=== PATIENT | female | born 1990 | race Caucasian/White ===

== ENCOUNTER → 2017-12-15 15:17 | Outpatient (CLI) | payer OTHER, MEDICAID, SELFPAY ==
[2017-12-15 17:23] LABS: Hematocrit 30.2 % (36-46); Hemoglobin 10.8 g/dL (12.0-16.0)
[2017-12-15 17:59] LABS: GTT (PREG) 1 Hour PP 50gm Dose 137 mg/dL (76-139)
== END ==
PROVIDERS: Family Provider Physician Assistant Medical; PCP Physician Assistant Medical; Visit Provider Specialist
DX: Z34.82 Encounter for supervision of other normal pregnancy, second trimester (principal)
CPT/HCPCS: 82950; 85014; 85018

== ENCOUNTER 2017-12-16 07:27 | Observation (INO) | payer OTHER, MEDICAID, SELFPAY ==
[2017-12-16 08:37] LABS: Bacteria Urine None Seen
[2017-12-16 08:39] LABS: Appearance Urine UA SL CLOUDY; Bilirubin Urine UA NEGATIVE (NEGATIVE); Color Urine UA YELLOW; Glucose Urine UA NEGATIVE (Normal); Ketones Urine UA NEGATIVE (NEGATIVE); Leukocyte Esterase Urine UA TRACE (NEGATIVE); Nitrite Urine UA Negative (Negative); Occult Blood Urine UA 3+ (Negative); Protein Urine UA NEGATIVE (Negative); Urobilinogen Urine UA 0.2 E.U./dL (0.2); pH Urine UA 6.5 (4.5-8.0)
[2017-12-16 08:45] LABS: RBC Urine 30-100/HPF (0-5/HPF); Squamous Epithelial Cell Urine 10-30 /HPF; WBC Urine 1-5/HPF (0-5/HPF)
[2017-12-16 08:46] LABS: Culture Indicated Urine Cult Not Indicated
--- NOTE | 2017-12-16 09:52 | PM.OBTRLD ---
Visit Information Visit Information Date of evaluation: 12/16/17 Primary OB Provider: Adelaide Esquivel Reason for Evaluation: Yes other Comments/Additional reasons for admission: Low back and pelvic pain REPLACED BY [facility] Medical History Anxiety (Chronic ~2005) Depression (Chronic ~2005) Gallstones (Chronic) History of frequent headaches (Chronic) Human papillomavirus (Chronic ~2008) Migraines (Chronic ~2004) Shoulder pain (Chronic ~2007) Chickenpox (Resolved ~1993) Review of Systems Review of Systems Patient comes in with 24 hr of complaints of low back and pelvic pain. No bleeding. No leakage of fluid. No change in vaginal discharge. Good movement. Some increased frequency of urination and some burning with urination. Exam Narrative Exam Narrative: Patient does have some mild right CVA tenderness. She does not have uterine tenderness. Cervix is long and closed. However the presenting part is low. Objective Labs Labs: Laboratory Results - last 24 hr 12/16/17 08:00 Urine Color Yellow Urine Appearance Sl cloudy Urine pH 6.5 Ur Specific [place] 1.020 Urine Protein Negative Urine Glucose (UA) Negative Urine Ketones Negative Urine Occult Blood 3+ H Urine Nitrate Negative Urine Bilirubin Negative Urine Urobilinogen 0.2 Ur Leukocyte Esterase Trace H Urine RBC 30-100/hpf H Urine WBC 1-5/hpf Ur Squamous Epith Cells 10-30 /hpf H Urine Bacteria None seen Ur Culture Indicated? Cult not indicated Micro UA Comment Not Reportable Evaluation Evaluation Baseline heart rate: 150 Variability: Moderate (11-25) monitor accelerations: Present monitor decelerations: Absent Contraction Frequency (minutes): 0 Cervical dilation (cm): 0 Cervical effacement (%): 0 station: -1 Laboratory results: Laboratory Tests 12/16/17 08:00 Urine Color Yellow Urine Appearance Sl cloudy Urine pH 6.5 Ur Specific [place] 1.020 Urine Protein Negative Urine Glucose (UA) Negative Urine Ketones Negative Urine Occult Blood 3+ H Urine Nitrate Negative Urine Bilirubin Negative Urine Urobilinogen 0.2 Ur Leukocyte Esterase Trace H Urine RBC 30-100/hpf H Urine WBC 1-5/hpf Ur Squamous Epith Cells 10-30 /hpf H Urine Bacteria None seen Ur Culture Indicated? Cult not indicated Micro UA Comment Not Reportable Diagnosis, Plan/Disposition Final Diagnosis (1) UTI (urinary tract infection): Current Visit: No Status: Acute Plan/Disposition Plan: The patient will be started on antibiotics. She has to push fluid. If she develops a fever she is to return for admission for IV antibiotics. OB Disposition: home
== END 2017-12-16 09:37 | disposition home or self-care (01) ==
PROVIDERS: Specialist; Family Provider Physician Assistant Medical; PCP Physician Assistant Medical
DX: O26.893 Other specified pregnancy related conditions, third trimester (principal); Z3A.28 28 weeks gestation of pregnancy; N39.0 Urinary tract infection, site not specified
CPT/HCPCS: 59025; 59050; 81001; G0378; G0379

== ENCOUNTER → 2018-02-15 17:10 | Outpatient (CLI) | payer OTHER, MEDICAID, SELFPAY ==
[2018-02-16 12:26] LABS: Strep Grp B PCR NEG for Grp B Strep
== END ==
PROVIDERS: Family Provider Physician Assistant Medical; PCP Physician Assistant Medical; Visit Provider Specialist
DX: Z3A.37 37 weeks gestation of pregnancy (principal)
CPT/HCPCS: 87653

== ENCOUNTER 2018-02-26 02:17 | Inpatient (IN) | payer OTHER, MEDICAID, SELFPAY ==
[2018-02-26 03:16] LABS: Add Manual Diff / Slide Review NO; Basophils Percent Auto 0.5 % (0-2); Eosinophils Percent Auto 0.6 % (2-4); Lymphocytes Percent Auto 23.2 % (25-40); Mean Corpuscular HGB Conc 34.2 % (30-36); Mean Corpuscular Hemoglobin 32.2 PG (26-34); Mean Corpuscular Volume 94.3 fL (80-100); Monocytes Percent Auto 4.7 % (3-14); Neutrophils Absolute Auto 7100 /uL (3000-5900); Platelet Count 268 X10^3/uL (150-400); Red Blood Cell Count 3.71 X10^6/uL (4.0-5.2); Red Cell Distribution Width 15.2 % (11.6-14.8)
[2018-02-26] MEDS: LACTATED RINGERS 1,000 ML 100 ML IV (03:30)
--- NOTE | 2018-02-26 03:47 | P.HPOB_ITS ---
OB HPI Date/Time Date of admission: 02/26/18 Date Patient Seen: 02/26/18 Time Patient Seen: 03:44 History of Present Condition Chief complaint: observation : 2 Para: 1 Estimated Date of Delivery: 03/05/18 Estimated Gestational Age (weeks): 39 Narrative: Luiza Scott is a 28 year old female who arrived on Labor and delivery in active labor. History of Present care: good care Dating criteria: LMP confirmed by 1st trimester US Ultrasounds: normal mid trimester US Obstetrical complications: none Medical complications: none Preadmission Labs Blood type: A (+) positive -: Antibody screen: negative, GBS status: negative, HBsAG: negative, HIV: negative, HSV 2: negative and RPR/VDLR: negative -: Chlamydia screen: not detected and Gonorrhea screen: not detected -: Rubella: immune and Varicella: immune HCAB: negative PAP: Normal Quad screen: Normal 1 hr GTT: 137 Prior (ies) History: 07/06/2014 39 weeks vaginal delivery 6 lb 14 oz female Evaluation Evaluation Baseline heart rate: 120 Variability: Moderate (11-25) monitor accelerations: Present monitor decelerations: Absent Contraction Frequency (minutes): 3 Uterine Contraction Intensity: Moderate Category of Tracing: I Cervical dilation (cm): 5 Cervical effacement (%): 80 station: -2 Laboratory results: Laboratory Tests 02/26/18 03:00 WBC 10.0 RBC 3.71 L Hgb 12.0 Hct 35.0 L MCV 94.3 MCH 32.2 MCHC 34.2 RDW 15.2 H Plt Count 268 Neut % (Auto) 71.0 Lymph % (Auto) 23.2 L [place] % (Auto) 4.7 Eos % (Auto) 0.6 L Baso % (Auto) 0.5 Neut # (Auto) 7100 H [facility] Medical History Anxiety (Chronic ~2005) Depression (Chronic ~2005) Gallstones (Chronic) History of frequent headaches (Chronic) Human papillomavirus (Chronic ~2008) Migraines (Chronic ~2004) Shoulder pain (Chronic ~2007) Chickenpox (Resolved ~1993) Meds Home Medications Medication Instructions Recorded Confirmed Type ondansetron [Zofran ODT] 4 mg SUBLINGUAL Q6HP PRN #20 odt 07/11/17 Rx omeprazole 20 mg tablet,delayed 40 mg PO DAILY PRN #60 tab 01/19/18 Rx release fbrqgbozws-yhouzzllaxkhj-yjynmyxw 1 - 2 tab PO Q4HP PRN #30 tab 02/15/18 Rx 50 mg-325 mg-40 mg tablet zolpidem 5 mg tablet 5 mg PO BEDTIME PRN #10 tab 02/15/18 Rx Allergies Allergy/AdvReac Type Severity Reaction Status Date / Time No Known Allergies Allergy Uncoded 09/28/17 12:31 Review of Systems Review of Systems All systems reviewed & are unremarkable except as noted in HPI and below Exam Vital Signs (past 8 hours): Blood pressure 127/75, pulse is 97 temperature 36.6? Narrative Exam Narrative: HEENT exam within normal limits. Lungs are clear to auscultation percussion. Heart is regular rate and rhythm no S3-S4 or murmurs. Abdomen is soft, gravid with firm contractions palpable. Cervix is 5 cm dilated 80% effaced posterior station minus 2. Extremities without edema and nontender. Normal DTRs. Objective Labs Result Diagrams: 02/26/18 03:00 Labs: Laboratory Results - last 24 hr 02/26/18 03:00 WBC 10.0 RBC 3.71 L Hgb 12.0 Hct 35.0 L MCV 94.3 MCH 32.2 MCHC 34.2 RDW 15.2 H Plt Count 268 Neut % (Auto) 71.0 Lymph % (Auto) 23.2 L [place] % (Auto) 4.7 Eos % (Auto) 0.6 L Baso % (Auto) 0.5 Neut # (Auto) 7100 H Assessment and Plan (1) 39 weeks gestation of : Current visit: No Status: Inactive (2) Encounter for supervision of other normal , third trimester: Current visit: Yes Status: Acute Plan: Plan: Patient is requesting epidural catheter for pain control. Anticipate vaginal delivery.
[2018-02-26] MEDS: ONDANSETRON 4 MG/2 ML INJ IV ×2 (04:33→07:28)
[2018-02-26 05:01] VITALS: BP 112/62
--- NOTE | 2018-02-26 10:15 | P.PCNOB_ITS ---
Events: Meconium Stained Fluid Delivery date: 02/26/18 Intrapartal events: None Induction method: none Delivery monitor: external FHT and external uterine Route of delivery: Laceration description: None Estimated blood loss (mL): 100 Anesthesia type: Epidural Narrative: Patient arrived on Labor and delivery in active labor. She received an epidural catheter for pain control. When she was 9 cm she was a ROM for medium meconium-stained fluid. heart tones category 1 to category 2 throughout labor. Patient delivered spontaneously, over an intact perineum. The male infant was placed on maternal abdomen. After the cord stopped pulsating the cord was clamped cut and cord bloods obtained. Placenta delivered spontaneously, intact, with 3 vessels. There were no cervical vaginal or perineal tears. Estimated blood loss 100 cc. and mother doing well. Baby weight 8 lb 8.3 oz [place] Baby 1: Infant gender: Male Presentation: vertex position: Right Occiput Anterior Placenta delivery description: Spontaneous cord vessel description: 3 Vessels score (1 min): 9 score (5 min): 9 Plan for aftercare: Routine post vaginal delivery
[2018-02-26] MEDS: IBUPROFEN 600 MG TABLET PO ×2 (11:34→18:44)
[2018-02-26] MEDS: HYDROCODONE/ACET 5/325 TABLET 2 TAB PO ×3 (11:34→20:25)
[2018-02-26 20:25] VITALS: TEMP 37.1
[2018-02-26] MEDS: DERMOPLAST SPRAY 20% 60 ML 1 SPRAY TOP (20:28)
[2018-02-27] MEDS: HYDROCODONE/ACET 5/325 TABLET 2 TAB PO ×4 (00:35→13:43)
[2018-02-27] MEDS: IBUPROFEN 600 MG TABLET PO ×3 (01:05→15:34)
[2018-02-27 05:33] LABS: Hematocrit 28.6 % (36-46); Hemoglobin 9.9 g/dL (12.0-16.0)
--- NOTE | 2018-02-27 08:03 | P.DS_ITS ---
Discharge Providers Date of admission: 02/26/18 02:17 Primary care physician: Leah Stokes PA-C Consults: 02/26/18 10:55 Consult to [facility] Routine Comment: Discharge provider: Adelaide Esquivel MD Discharge Date: 02/27/18 Summary Discharge Diagnosis (1) 39 weeks gestation of : Status: Inactive (2) Encounter for supervision of other normal , third trimester: Status: Acute (3) Acute blood loss anemia: Status: Acute (4) Vaginal delivery: Status: Acute Time Spent with Patient Total time spent providing and/or coordinating discharge services: Objective Labs Result Diagrams: 02/27/18 05:08 Labs: Laboratory Results - last 24 hr 02/27/18 05:08 Hgb 9.9 L Hct 28.6 L Discharge Plan Discharge Plan Patient Disposition: Home Discharge Med Rec/Prescriptions Prescriptions: New hydrocodone-acetaminophen 5-325 mg Tablet 2 tab PO Q4HR PRN (Reason: Pain, Moderate (4-6)) Qty: 30 RF: 0 ibuprofen 600 mg Tablet 600 mg PO Q6HR PRN (Reason: Pain, Mild (1-3)) Qty: 30 RF: 0 docusate sodium 250 mg Capsule 250 mg PO DAILY Qty: 30 RF: 0 ferrous gluconate 324 mg (38 mg iron) tablet 324 mg PO DAILY Qty: 30 RF: 0 ferrous gluconate 324 mg (38 mg iron) tablet 324 mg PO DAILY Qty: 30 RF: 0 Continue ondansetron [Zofran ODT] 4 MG tablet,disintegrating 4 mg Sublingual Q6HP PRNQty: 20 RF: 2 omeprazole 20 mg tablet,delayed release (DR/EC) 40 mg PO DAILY PRN (Reason: heartburn) Qty: 60 RF: 0 zolpidem 5 mg tablet 5 mg PO BEDTIME PRN (Reason: insomnia) Qty: 10 RF: 0 valhyzmtfo-iaeyltztyakjd-tlvc 50-325-40 mg tablet 1 - 2 tab PO Q4HP PRN (Reason: headaches) Qty: 30 RF: 0 Follow up/Referrals: Adelaide Esquivel MD [Physician] - 1 Month Leah Stokes PA-C [Primary Care Provider] - Provider Discharge Instructions Diet: Regular Skin/Wound/Dressing Care Report to your healthcare provider any signs of infection, such as:: chills, fever and night sweats Discharge Data Primary Care Provider: Leah Stokes Attending Provider: Adelaide Esquivel Admit Date/Time: 02/26/18 02:17
[2018-02-27] MEDS: DOCUSATE 250 MG CAPSULE PO (09:13)
== END 2018-02-27 16:47 | disposition home or self-care (01) | DRG 775 ==
PROVIDERS: Admitting Provider Specialist; Family Provider Physician Assistant Medical; PCP Physician Assistant Medical; Visit Provider Specialist
DX: O77.0 Labor and delivery complicated by meconium in amniotic fluid (principal); D62 Acute posthemorrhagic anemia; Z3A.39 39 weeks gestation of pregnancy; Z37.0 Single live birth
CPT/HCPCS: 01967; 36415; 59050; 59400; 85014; 85018; 85025; 86850; 86900; 86901; G0379; J2405; J3010

== ENCOUNTER 2019-07-15 20:31 | Emergency (ER) | payer OTHER, SELFPAY ==
[2019-07-15 20:40] VITALS: BP 123/75; PULSE 115; RESP 20; TEMP 36.9; O2SAT 98
--- NOTE | 2019-07-15 21:07 | ED_ITS ---
HPI - General Adult General Chief complaint: Abdominal Pain Stated complaint: vomiting all day,chills Time Seen by Provider: 07/15/19 21:01 Source: patient Mode of arrival: Ambulatory Limitations: no limitations History of Present Illness HPI narrative: 29-year-old female here with symptoms of nausea and vomiting and diarrhea and chills and body aches just over 24 hours. States she has had little oral intake today to include food and drink. She is currently on her menstrual cycle. Does have abdominal pain which she attributes to all of the vomiting. No back pain. No recent travel. No recent antibiotic use. Related Data Home Medications Medication Instructions Recorded Confirmed sumatriptan succinate 25 mg tablet 25 mg PO Q2-4H PRN 03/30/18 06/29/19 butalbital 50 mg-acetaminophen 325 1 cap PO Q4H PRN 06/29/19 06/29/19 mg-caffeine 40 mg-codeine 30 mg cap Previous Rx's Medication Instructions Recorded norethindrone (contraceptive) 0.35 See Rx Instructions .ROUTE 04/16/19 mg tablet .COMPLEX #28 tablet ondansetron 4 mg PO Q6H PRN #10 tab 07/15/19 Allergies Allergy/AdvReac Type Severity Reaction Status Date / Time No Known Allergies Allergy Uncoded 06/29/19 13:52 Review of Systems Constitutional Constitutional: Reports fatigue, Reports fever(s) and Reports lethargy Cardiovascular Cardiovascular: Denies chest pain and Denies dyspnea Respiratory Respiratory: Denies dyspnea Gastrointestinal Gastrointestinal: Reports abdominal pain and Reports diarrhea Genitourinary Genitourinary: Denies dysuria Musculoskeletal Musculoskeletal: Reports myalgias and Denies arthralgias Integumentary/Breasts Skin/Breast: Denies lesions and Denies rash Neurologic Neurologic: Denies behavioral changes Psychiatric Psychiatric: Denies behavioral changes Endocrine Endocrine: Reports fatigue Hematologic/Lymphatic Hematologic/Lymphatic: Denies easy bleeding and Denies easy bruising Patient History Medical History Anxiety (Chronic ~2005) Chickenpox (Resolved ~1993) Depression (Chronic ~2005) Gallstones (Chronic) Herpes dermatitis (Inactive) History of frequent headaches (Chronic) Human papillomavirus (Chronic ~2008) Migraines (Chronic ~2004) Pyelonephritis (Resolved) Shoulder pain (Chronic ~2007) Vaginal delivery (Inactive) Social History Smoking Status: Former smoker Smoking Status: Former smoker Exam Initial Vital Signs Initial Vital Signs: Vital Signs Temperature 98.4 F 07/15/19 20:40 Pulse Rate 115 H 07/15/19 20:40 Respiratory Rate 20 07/15/19 20:40 Blood Pressure 123/75 07/15/19 20:40 Pulse Oximetry 98 07/15/19 20:40 Const General: cooperative and healthy appearing Limitations: mental status not altered HENMT Head: normal to inspection and normocephalic Resp Effort & Inspection: normal respiratory effort Auscultation: clear to auscultation bilaterally Cardio Rate: tachycardic Rhythm: regular rhythm Pulses: radial pulses present GI Inspection: non-distended Palpation: soft and No firm Back/Spine/Pelvis Back: No CVA tenderness Skin Lesions: no lesions Rashes: no rashes Neuro General: alert, awake and oriented x3 Cognition: normal cognition Speech: speech normal Extrem General: normal to inspection and capillary refill normal Psych Appearance: grossly normal and well kempt Course Orders Ordered: ED Orders 07/15/19 20:52 Complete Blood Count AUTO DIFF Stat Comprehensive Metabolic Panel Stat Lipase Stat Test Serum,Qual Stat Discontinued Medications Sodium Chloride (Normal Saline 0.9%) 1,000 mls @ 1,000 mls/hr IV BOLUS ONE Stop: 07/15/19 22:06 Last Infusion: 07/15/19 22:32 Dose: 0 mls/hr Documented by: MARY KATE Admin: 07/15/19 21:21 Dose: 1,000 mls/hr Documented by: MARY KATE Sodium Chloride (Normal Saline 0.9%) 1,000 mls @ 1,000 mls/hr IV BOLUS ONE Stop: 07/15/19 23:15 Last Infusion: 07/15/19 23:22 Dose: 0 mls/hr Documented by: MARY KATE Admin: 07/15/19 22:16 Dose: 1,000 mls/hr Documented by: MARY KATE Ketorolac Tromethamine (Toradol) 15 mg IV NOW ONE Stop: 07/15/19 21:34 Last Admin: 07/15/19 21:35 Dose: Not Given Documented by: MARY KATE Ketorolac Tromethamine (Toradol) 15 mg IV NOW ONE Stop: 07/15/19 21:36 Last Admin: 07/15/19 21:40 Dose: 15 mg Documented by: MARY KATE Ondansetron HCl (Zofran Odt Prepack) 1 bottle MISC SEEINSTR ONE Stop: 07/15/19 23:41 Last Admin: 07/15/19 23:45 Dose: 1 bottle Documented by: MARY KAET Sumatriptan Succinate (Imitrex) 25 mg PO NOW ONE Stop: 07/15/19 22:56 Last Admin: 07/15/19 23:10 Dose: Not Given Documented by: MARY KATE Sumatriptan Succinate (Imitrex) 6 mg SUBCUT NOW ONE Stop: 07/15/19 23:01 Last Admin: 07/15/19 23:10 Dose: 6 mg Documented by: MARY KATE Vital Signs Vital signs: Vital Signs - 8 hr 07/15/19 20:40 07/15/19 23:03 Temperature 98.4 F Pulse Rate 115 H 83 Respiratory Rate 20 15 Blood Pressure 123/75 Blood Pressure [Left Ankle] 110/67 Pulse Oximetry 98 99 Medical Decision Making Lab Data Lab results reviewed: Yes I reviewed the patient's lab results. Result diagrams: 07/15/19 20:52 07/15/19 20:52 Labs: Lab Results 07/15/19 07/15/19 07/15/19 Range/Units 20:52 20:52 20:52 WBC 11.7 H (4.5-11.0) X10^3/uL RBC 4.37 (4.0-5.2) X10^6/uL Hgb 14.6 (12.0-16.0) g/dL Hct 42.1 (36-46) % MCV 96.4 (80-100) fL MCH 33.5 (26-34) PG MCHC 34.7 (30-36) % RDW 12.4 (11.6-14.8) % Plt Count 317 (150-400) X10^3/uL Neut % (Auto) 88.2 H (50-75) % Lymph % (Auto) 9.3 L (25-40) % [place] % (Auto) 2.0 L (3-14) % Eos % (Auto) 0.1 L (2-4) % Baso % (Auto) 0.4 (0-2) % Neut # (Auto) 83437 H (1381-1458) /uL Lymph # (Auto) 1100 (1527-1183) /uL [place] # (Auto) 200 (0-900) /uL Eos # (Auto) 0 (0-450) /uL Baso # (Auto) 0 (0-100) /uL Sodium 140 (137-145) mmol/L Potassium 3.6 (3.4-5.1) mmol/L Chloride 105 (98-107) mmol/L Carbon Dioxide 25 (22-32) mmol/L BUN 16 (7-17) mg/dL Creatinine 0.60 (0.52-1.04) mg/dL Estimated GFR > 60.0 (>60) mL/min BUN/Creatinine Ratio 26.7 H (6-22) Glucose 109 H (70-100) mg/dL Calcium 9.4 (8.4-10.2) mg/dL Total Bilirubin 0.7 (0.2-1.3) mg/dL AST 20 (14-36) IU/L ALT 16 (<35) IU/L Alkaline Phosphatase 53 (38-126) U/L Total Protein 7.6 (6.3-8.2) g/dL Albumin 4.6 (3.5-5.0) g/dL Globulin 3.0 (1.7-4.1) g/dL Albumin/Globulin Ratio 1.5 (1.0-2.8) Lipase 47 (23-300) U/L Serum , Qual Negative (Negative) Urine Dip Bedside Urine Glucose Negative Bedside Urine Bilirubin - Negative Bedside Urine Ketone +++ 80 Urine Specific [place] 1.025 Bedside Urine Occult Blood ++ Bedside Urine pH 6.0 Bedside Urine Protein +/- 15 Bedside Urine Urobilinogen - Negative Bedside Urine Nitrite - Negative Bedside Urine Leukocytes - Negative Esterase Point of care testing: Urine Dip Bedside Urine Glucose Negative Bedside Urine Bilirubin - Negative Bedside Urine Ketone +++ 80 Urine Specific [place] 1.025 Bedside Urine Occult Blood ++ Bedside Urine pH 6.0 Bedside Urine Protein +/- 15 Bedside Urine Urobilinogen - Negative Bedside Urine Nitrite - Negative Bedside Urine Leukocytes - Negative Esterase MDM Narrative Medical decision making narrative: Patient felt much better with regard to the nausea after medications and fluids. No no episodes of vomiting or diarrhea here in the ER. Was able to tolerate oral intake. Developed a headache afterwards. This was resolved with medications as well. Feel that we can hold on any radiologic studies. We did discuss return precautions and follow-up instructions. She expressed understanding and agreement with plan. Discharge Plan Departure Patient Disposition: Home Clinical Impression: Nausea & vomiting Qualifiers: Vomiting type: unspecified Vomiting Intractability: non-intractable Qualified Code(s): R11.2 - Nausea with vomiting, unspecified Headache Qualifiers: Headache type: unspecified Headache chronicity pattern: unspecified pattern Intractability: not intractable Qualified Code(s): R51 - Headache Discharge Date/Time: 07/15/19 23:49 Instructions: Nausea and Vomiting-Adult Activity Restrictions/Additional Instructions: Be sure to increase your fluid intake. Eat a bland diet. Fluids are more important for the next couple days. Use the nausea medication as needed. Return to the emergency department for any new or worsening symptoms. Your prescription for nausea medication was electronically sent to [facility] in [place] which was your preferred pharmacy in our system Prescriptions: New ondansetron 4 mg tablet,disintegrating 4 mg PO Q6H PRN (Reason: nausea and vomiting) Qty: 10 RF: 0 No Action norethindrone (contraceptive) [Deblitane] 0.35 mg tablet See Rx Instructions .ROUTE .COMPLEX Qty: 28 RF: 6 sumatriptan succinate [Imitrex] 25 mg tablet 25 mg PO Q2-4H PRNRF: 0 oxdyqlzctn-upbgpozexm-shr-cod [id number] mg capsule 1 cap PO Q4H PRNRF: 0 Referrals: Leah Stokes PA-C [Primary Care Provider] -
[2019-07-15 21:21] LABS: Add Manual Diff / Slide Review NO; Basophils Absolute Auto 0 /uL (0-100); Basophils Percent Auto 0.4 % (0-2); Eosinophils Absolute Auto 0 /uL (0-450); Eosinophils Percent Auto 0.1 % (2-4); Hematocrit 42.1 % (36-46); Hemoglobin 14.6 g/dL (12.0-16.0); Lymphocytes Absolute Auto 1100 /uL (1100-4500); Lymphocytes Percent Auto 9.3 % (25-40); Mean Corpuscular HGB Conc 34.7 % (30-36); Mean Corpuscular Hemoglobin 33.5 PG (26-34); Mean Corpuscular Volume 96.4 fL (80-100); Monocytes Absolute Auto 200 /uL (0-900); Neutrophils Absolute Auto 10300 /uL (1500-7000); Neutrophils Percent Auto 88.2 % (50-75); Platelet Count 317 X10^3/uL (150-400); Red Blood Cell Count 4.37 X10^6/uL (4.0-5.2); Red Cell Distribution Width 12.4 % (11.6-14.8); White Blood Cell Count 11.7 X10^3/uL (4.5-11.0)
[2019-07-15] MEDS: ONDANSETRON 4 MG/2 ML INJ (21:21)
[2019-07-15] MEDS: SODIUM CHLORIDE 0.9% 1,000 ML 1000 ML IV ×2 (21:21→22:16)
[2019-07-15 21:25] LABS: Alanine Aminotransferase 16 IU/L (<35); Albumin 4.6 g/dL (3.5-5.0); Albumin Globulin Ratio 1.5 (1.0-2.8); Alkaline Phosphatase 53 U/L (38-126); Aspartate Aminotransferase 20 IU/L (14-36); BUN Creatinine Ratio 26.7 (6-22); Bilirubin Total 0.7 mg/dL (0.2-1.3); Blood Urea Nitrogen 16 mg/dL (7-17); Calcium 9.4 mg/dL (8.4-10.2); Carbon Dioxide 25 mmol/L (22-32); Chloride 105 mmol/L (98-107); Estimated Glomerular Filt Rate > 60.0 mL/min (>60); Glucose 109 mg/dL (70-100); HEMOLYSIS < 15 (0-50); Lipase 47 U/L (23-300); Potassium 3.6 mmol/L (3.4-5.1); Sodium 140 mmol/L (137-145); Total Protein 7.6 g/dL (6.3-8.2)
[2019-07-15 21:29] LABS: Pregnancy Test Serum,Qual Negative (Negative)
[2019-07-15] MEDS: KETOROLAC 60 MG/2 ML VIAL 15 MG IV (21:40)
[2019-07-15 23:03] VITALS: BP 110/67; PULSE 83; RESP 15; O2SAT 99
[2019-07-15] MEDS: SUMAtriptan 6 MG/0.5 ML VIAL SUBCUT (23:10)
[2019-07-15] MEDS: ONDANSETRON 4 MG ODT PREPACK 1 BOTTLE MISC (23:45)
== END 2019-07-15 23:49 | disposition home or self-care (01) ==
PROVIDERS: Emergency Provider Emergency Medicine; Family Provider Physician Assistant Medical; PCP Physician Assistant Medical
DX: R11.2 Nausea with vomiting, unspecified (principal); R51 Headache
CPT/HCPCS: 36415; 80053; 81003; 83690; 84703; 85025; 96361; 96372; 96374; 99284; J1885; J2405; J3030

== ENCOUNTER 2019-09-10 20:10 | Emergency (ER) | payer OTHER, SELFPAY ==
[2019-09-10 20:19] VITALS: BP 116/64; PULSE 91; RESP 20; TEMP 37.1; O2SAT 100; BMI 21.2
--- NOTE | 2019-09-10 20:27 | DI.RAD.S_ITS ---
PROCEDURE: XR CHEST 2V INDICATIONS: cough, shortness of breath, chest pain, fever TECHNIQUE: 2 views of the chest were acquired. COMPARISON: None. FINDINGS: Surgical changes and devices: None. Lungs and pleura: Lungs are clear. No pleural effusions or pneumothorax. Mediastinum: Mediastinal contours are normal. Heart size is normal. Bones and chest wall: No suspicious bony abnormalities. Soft tissues appear unremarkable. IMPRESSION: No acute cardiopulmonary disease process. Dictated by: Susanne Ball MD, PhD on 09/10/2019 at 20:44 Approved by: Susanne Ball MD, PhD on 09/10/2019 at 20:44
[2019-09-10 20:30] VITALS: BP 104/61; PULSE 74; O2SAT 100
--- NOTE | 2019-09-10 20:46 | ED.SOB ---
HPI - SOB/Dyspnea General Chief Complaint: Shortness of Breath/Dyspnea Stated Complaint: EXPOSED TO COVID 19 SOB COUGH CHEST PAIN Time Seen by Provider: 09/10/19 20:45 Source: patient and family Mode of arrival: Ambulatory Limitations: no limitations History of Present Illness HPI Narrative: This 29-year-old female comes to the emergency department with complaint of shortness of breath, chest pain and cough. Patient states that she a known exposure to someone who tested positive for about 20 minutes earlier in the week. Patient states she started having symptoms on Tuesday and they have increased. She states she has felt more short of breath, she has had chest pain and a mild cough that is been nonproductive. She has been afebrile. She has not had any nausea, no vomiting, no other GI complaints. No swelling in her extremities or urinary symptoms she denies any medical problems. Denies any current medications. She does currently live with her as well as 2 children ages 4 in 18 months. Related Data Home Medications Medication Instructions Recorded Confirmed sumatriptan succinate 25 mg tablet 25 mg PO Q2-4H PRN 03/30/18 06/29/19 Previous Rx's Medication Instructions Recorded norethindrone (contraceptive) 0.35 See Rx Instructions .ROUTE 04/16/19 mg tablet .COMPLEX #28 tablet ondansetron 4 mg PO Q6H PRN #10 tab 07/15/19 argigtcdxv-wiyxiaafiihbd-ferqajoj 1 - 2 tab PO Q4HP PRN #30 tab 08/31/19 50 mg-325 mg-40 mg tablet Allergies Allergy/AdvReac Type Severity Reaction Status Date / Time No Known Allergies Allergy Uncoded 06/29/19 13:52 Review of Systems Review of Systems ROS Unobtainable: All systems reviewed & are unremarkable except as noted in HPI and below Patient History Medical History Anxiety (Chronic ~2005) Chickenpox (Resolved ~1993) Depression (Chronic ~2005) Gallstones (Chronic) Herpes dermatitis (Inactive) History of frequent headaches (Chronic) Human papillomavirus (Chronic ~2008) Migraines (Chronic ~2004) Pyelonephritis (Resolved) Shoulder pain (Chronic ~2007) Vaginal delivery (Inactive) Social History Smoking Status: Former smoker Smoking Status: Former smoker alcohol intake frequency: 0-2 drinks per day Substance Use Type: marijuana Exam Narrative Exam Narrative: GEN: well nourished, well appearing female, alert and oriented x 3, patient appears to be in mild distress. HEENT: Atraumatic, pupils are equal round reactive to light, extraocular movements are intact. HEART: Regular rate and rhythm without murmur, clicks, rubs. LUNGS:Lungs clear to auscultation, no wheezes, rales, crackles, chest moves symmetrically, no tachypnea, speaks in full sentences with no accessory muscle use. ABD:bowel sounds normal, soft, non-tender, no guarding, rebound, rigidity, no masses noted, no hepatosplenomegaly :No CVA tenderness, [male/female exam] MSCL: Non-tender, no muscle atrophy, muscles strength 5/5 upper and lower extremities, full range of motion, normal gait NEURO:CN 2-12 intact, sensation normal Initial Vital Signs Initial Vital Signs: Vital Signs Temperature 98.8 F 09/10/19 20:19 Pulse Rate 91 H 09/10/19 20:19 Respiratory Rate 20 09/10/19 20:19 Blood Pressure 116/64 09/10/19 20:19 Pulse Oximetry 100 09/10/19 20:19 Course Orders Ordered: ED Orders 09/10/19 20:27 Chest [XR chest 2V] Stat 09/10/19 20:29 Flu test [Influenza A & B (PCR)] Stat 09/10/19 20:35 EKG-12 Lead Stat Vital Signs Vital signs: Vital Signs - 8 hr 09/10/19 20:19 09/10/19 20:30 09/10/19 21:53 Temperature 98.8 F Pulse Rate 91 H 74 76 Respiratory Rate 20 Blood Pressure 116/64 Blood Pressure [Right Arm] 104/61 106/64 Pulse Oximetry 100 100 100 09/10/19 22:05 Temperature Pulse Rate 74 Respiratory Rate 16 Blood Pressure 106/64 Blood Pressure [Right Arm] Pulse Oximetry 100 MDM - SOB/Dyspnea Lab Data Attestation: I reviewed the patient's lab results. Labs: Lab Results 09/10/19 Range/Units 20:29 Influenza A (RT-PCR) Flu a negative (NEGATIVE) Influenza B (RT-PCR) Flu b negative (NEGATIVE) Point of Care Testing Test Results Negative Urine Dip Bedside Urine Glucose Negative Bedside Urine Bilirubin - Negative Bedside Urine Ketone - Negative Urine Specific [place] 1.015 Bedside Urine Occult Blood + Bedside Urine pH 6.0 Bedside Urine Protein - Negative Bedside Urine Urobilinogen - Negative Bedside Urine Nitrite - Negative Bedside Urine Leukocytes - Negative Esterase patient has blood in urine and microscopy is held as she is on her menses. Imaging Data Chest x-ray: Radiologist's Impression: [address] [address] XRay Report Signed Patient: Luiza Scott MMR#: [id number] : 1990Acct:[id number] Age/Sex: 29 / FDate of Service: 09/10/19 Loc: ED Accession Number: [id number] Procedure: XR chest 2V Ordering Provider: Wendy Monteiro D.O. PROCEDURE: XR CHEST 2V INDICATIONS: cough, shortness of breath, chest pain, fever TECHNIQUE: 2 views of the chest were acquired. COMPARISON: None. FINDINGS: Surgical changes and devices: None. Lungs and pleura: Lungs are clear. No pleural effusions or pneumothorax. Mediastinum: Mediastinal contours are normal. Heart size is normal. Bones and chest wall: No suspicious bony abnormalities. Soft tissues appear unremarkable. IMPRESSION: No acute cardiopulmonary disease process. Dictated by: Susanne Ball MD, PhD on 09/10/2019 at 20:44 Approved by: Susanne Ball MD, PhD on 09/10/2019 at 20:44 ECG Data Attestation: I personally reviewed and interpreted this ECG as follows: Interpretation: Sinus rhythm rate of 67 WA 146 QRS 85 and QTC of 400. No ST elevation or depression. [facility] Narrative Medical decision making narrative: Discussed with patient today her vitals have been appropriate the department. She has not been hypoxic or tachypneic. Chest x-ray is negative, influenza swab was negative. Patient did have EKG which showed sinus rhythm with no acute changes. Discussed with patient we still have limited testing available and at this time she would not meet criteria per the CDC and department of health guidelines although nursing has already sent the swab and ordered the test. I would treat her as a suspected coronavirus as she has had a known contact and recommended self isolation for her and her family. We discussed strict return precautions and patient and family felt comfortable with this plan. Discharge Plan Departure Patient Disposition: Home Clinical Impression: Suspected 2019 novel coronavirus infection Discharge Date/Time: 09/10/19 22:05 Activity Restrictions/Additional Instructions: *You have been diagnosed with suspected antony virus infection/viral infection. *What to do: * per recommendations from the CDC and the [facility] Department of Health * stay home except to get medical care. Restrict activities outside your home, except for getting medical care. Do not go to work, school, or public areas. Avoid using public transportation, ride sharing, or taxis. * separate yourself from other people in your home. * call ahead before visiting your doctor * Wear a face mask * Cover your coughs and sneezes * Clean your hands often * Avoid sharing household items * Clean all high-touch services every day * Monitor your symptoms and seek prompt medical attention if your illness is worsening, particularly with difficulty in breathing. Discussed continuing home isolation * for individuals with symptoms who are confirmed or suspected cases of COVID-19 and are directed to care for themselves at home, discontinue home isolation under the following conditions: 1. At least 72 hours have passed since recovery, defined as resolution of fever without the use of fever reducing medications, and improvement in respiratory symptoms (cough, shortness of breath) AND, 2. At least 7 days have passed since symptoms 1st appeared And is also recommended that your family members self isolate at this time. Individuals with laboratory confirmed COVID-19 who have not had any symptoms may discontinue home isolation when at least 7 days have passed since the date of their 1st COVID-19 diagnostic test and have had no subsequent illness Prescriptions: No Action norethindrone (contraceptive) [Deblitane] 0.35 mg tablet See Rx Instructions .ROUTE .COMPLEX Qty: 28 RF: 6 nbehcoaauo-mlinmzjuwemix-nmzp 50-325-40 mg tablet 1 - 2 tab PO Q4HP PRN (Reason: headaches) Qty: 30 RF: 2 sumatriptan succinate [Imitrex] 25 mg tablet 25 mg PO Q2-4H PRNRF: 0 ondansetron 4 mg tablet,disintegrating 4 mg PO Q6H PRN (Reason: nausea and vomiting) Qty: 10 RF: 0 Referrals: Leah Stokes PA-C [Primary Care Provider] -
[2019-09-10 21:06] LABS: Influenza A - CEPHEID Flu A NEGATIVE (NEGATIVE); Influenza B - CEPHEID Flu B NEGATIVE (NEGATIVE)
[2019-09-10 21:53] VITALS: BP 106/64; PULSE 76; O2SAT 100
[2019-09-10 22:05] VITALS: BP 106/64; PULSE 74; RESP 16; O2SAT 100
[2019-09-13 05:35] LABS: COVID19 Sendout Not Detected (Not Detected)
== END 2019-09-10 22:05 | disposition home or self-care (01) ==
PROVIDERS: Emergency Provider Emergency Medicine; Family Provider Physician Assistant Medical; PCP Physician Assistant Medical
DX: Z20.828 Contact with and (suspected) exposure to other viral communicable diseases (principal); R06.02 Shortness of breath; R07.9 Chest pain, unspecified; R05 Cough; R50.9 Fever, unspecified
CPT/HCPCS: 71046; 81003; 81025; 87502; 87635; 93005; 99283

== ENCOUNTER → 2019-12-06 15:10 | Outpatient (CLI) | payer OTHER, SELFPAY ==
[2019-12-06 16:37] LABS: HCG Quantitative /Beta subunit < 2.4 mIU/mL
== END ==
PROVIDERS: Family Provider Physician Assistant Medical; PCP Physician Assistant Medical; Referring Provider Specialist; Visit Provider Specialist
DX: O20.0 Threatened abortion (principal); Z32.01 Encounter for pregnancy test, result positive
CPT/HCPCS: 36415; 84702

== ENCOUNTER 2020-02-17 23:19 | Emergency (ER) | payer OTHER, MEDICAID, SELFPAY ==
--- NOTE | 2020-02-17 23:21 | ED_ITS ---
HPI - General Adult General Chief complaint: Headache Stated complaint: 6 ws , nausea vomiting headache Time Seen by Provider: 02/17/20 23:19 Source: patient Mode of arrival: Ambulatory Limitations: no limitations History of Present Illness HPI narrative: Patient is a 30-year-old female. Six weeks EGA. Has a history of migraines. Here for evaluation approximately 24 hours of a migraine headache. She states that it feels different from her normal migraines because it is behind her right eye and is causing some blurriness in her right only. Was a gradual onset. No neck pain. Has tried Fioricet and Imitrex at home without improvement. Has had nausea and vomiting. No genital urinary related complaint Related Data Home Medications Medication Instructions Recorded Confirmed sumatriptan succinate 25 mg tablet 25 mg PO Q2-4H PRN 03/30/18 06/29/19 Previous Rx's Medication Instructions Recorded norethindrone (contraceptive) 0.35 See Rx Instructions .ROUTE 04/16/19 mg tablet .COMPLEX #28 tablet ondansetron 4 mg PO Q6H PRN #10 tab 07/15/19 knkndpvkrk-metgltottukca-lnzvnwzz 1 - 2 tab PO Q4HP PRN #30 tab 08/31/19 50 mg-325 mg-40 mg tablet Allergies Allergy/AdvReac Type Severity Reaction Status Date / Time No Known Allergies Allergy Uncoded 02/17/20 23:26 Review of Systems Constitutional Constitutional: Denies fever(s) and Reports headache(s) Eyes Eyes: Reports blurry vision and Reports change in vision ENT Ears, Nose, Mouth, and Throat: Reports headache(s) and Denies sinus pain Cardiovascular Cardiovascular: Denies chest pain and Denies dyspnea Respiratory Respiratory: Denies dyspnea Gastrointestinal Gastrointestinal: Reports nausea and Reports vomiting Genitourinary Genitourinary: Denies dysuria Genitourinary: Denies dysuria Integumentary/Breasts Skin/Breast: Denies rash Neurologic Neurologic: Reports headache(s) Hematologic/Lymphatic Hematologic/Lymphatic: Denies easy bleeding and Denies easy bruising Patient History Medical History Anxiety (Chronic ~2005) Chickenpox (Resolved ~1993) Depression (Chronic ~2005) Gallstones (Chronic) Herpes dermatitis (Inactive) History of frequent headaches (Chronic) Human papillomavirus (Chronic ~2008) Migraines (Chronic ~2004) Pyelonephritis (Resolved) Shoulder pain (Chronic ~2007) Vaginal delivery (Inactive) Social History Smoking Status: Former smoker Smoking Status: Former smoker alcohol intake frequency: 0-2 drinks per day Substance Use Type: marijuana Exam Initial Vital Signs Initial Vital Signs: Vital Signs Pulse Rate 83 02/17/20 23:22 Blood Pressure 109/56 L 02/17/20 23:22 Pulse Oximetry 99 02/17/20 23:22 Const General: cooperative Limitations: mental status not altered HENMT Head: normal to inspection and normocephalic Resp Effort & Inspection: normal respiratory effort Cardio Rate: regular rate Skin Lesions: no lesions Rashes: no rashes Neuro General: patient alert and patient awake Speech: speech normal Extrem General: normal to inspection Psych Appearance: grossly normal and well kempt Course Orders Ordered: ED Orders 02/17/20 23:34 Urine Microscopic Stat Discontinued Medications Diphenhydramine HCl (Benadryl) 25 mg IV NOW ONE Stop: 02/17/20 23:28 Last Admin: 02/17/20 23:44 Dose: 25 mg Documented by: RMARTIN Sodium Chloride (Normal Saline 0.9%) 1,000 mls @ 1,000 mls/hr IV BOLUS ONE Stop: 02/18/20 00:25 Last Admin: 02/17/20 23:44 Dose: 1,000 mls/hr Documented by: RMARTIN Metoclopramide HCl (Reglan) 10 mg IV NOW ONE Stop: 02/17/20 23:28 Last Admin: 02/17/20 23:46 Dose: 10 mg Documented by: PASQUALE Vital Signs Vital signs: Vital Signs - 8 hr 02/17/20 23:22 02/17/20 23:23 Temperature 98.4 F Pulse Rate 83 89 Respiratory Rate 12 Blood Pressure 109/56 L 109/56 L Pulse Oximetry 99 100 Medical Decision Making Medical Records Medical records reviewed: Yes I reviewed the patient's medical records. Lab Data Lab results reviewed: Yes I reviewed the patient's lab results. Labs: Lab Results 02/17/20 Range/Units 23:34 Urine RBC None seen (0-5/HPF) Urine WBC 1-5/hpf (0-5/HPF) Ur Squamous Epith Cells 5-10 /hpf H (0-5/HPF) Urine Bacteria Moderate (10-30) H (None) Urine Mucus 3+ H (Negative) Ur Culture Indicated? Cult not indicated Micro UA Comment * Point of Care Testing Test Results Positive Urine Dip Bedside Urine Glucose Negative Bedside Urine Bilirubin - Negative Bedside Urine Ketone ++ 40 Urine Specific [place] 1.030 Bedside Urine Occult Blood - Negative Bedside Urine pH 6.0 Bedside Urine Protein +/- 15 Bedside Urine Urobilinogen - Negative Bedside Urine Nitrite - Negative Bedside Urine Leukocytes + 70 Esterase Point of care testing: Point of Care Testing Test Results Positive Urine Dip Bedside Urine Glucose Negative Bedside Urine Bilirubin - Negative Bedside Urine Ketone ++ 40 Urine Specific [place] 1.030 Bedside Urine Occult Blood - Negative Bedside Urine pH 6.0 Bedside Urine Protein +/- 15 Bedside Urine Urobilinogen - Negative Bedside Urine Nitrite - Negative Bedside Urine Leukocytes + 70 Esterase MDM Narrative Medical decision making narrative: Patient is not complaining of any urinary symptoms. Low suspicion that she has a urinary tract infection. She does have a history of migraines. She states that with her 1st she did have an increase in the amount of migraines that had. States that during her 2nd she did not think it increased all at much. She has talk with her OB provider about this. She has Fioricet and also Imitrex at home. Patient reports a 50% improvement in her headache after medications. She states that she feels well enough that she would like to go home and sleep. Feel we can hold on head CT. Patient was given return precautions and follow-up instructions. She expressed understanding and agreement. Discharge Plan Departure Patient Disposition: Home Clinical Impression: Headache Qualifiers: Headache type: unspecified Headache chronicity pattern: unspecified pattern Intractability: not intractable Qualified Code(s): R51 - Headache Qualifiers: Weeks of gestation: less than 8 weeks Qualified Code(s): Z3A.01 - Less than 8 weeks gestation of Instructions: DI for Headache Activity Restrictions/Additional Instructions: Continue all of your medications as directed. Recommend that you keep all of your scheduled OB appointment. Be sure to increase your fluid intake. Return to the emergency department for any new or worsening symptoms Prescriptions: No Action norethindrone (contraceptive) [Deblitane] 0.35 mg tablet See Rx Instructions .ROUTE .COMPLEX Qty: 28 RF: 6 gnkhvxwshp-ojsapmixsfvvi-hwtu 50-325-40 mg tablet 1 - 2 tab PO Q4HP PRN (Reason: headaches) Qty: 30 RF: 2 sumatriptan succinate [Imitrex] 25 mg tablet 25 mg PO Q2-4H PRNRF: 0 ondansetron 4 mg tablet,disintegrating 4 mg PO Q6H PRN (Reason: nausea and vomiting) Qty: 10 RF: 0 Referrals: Leah Stokes PA-C [Primary Care Provider] -
[2020-02-17 23:22] VITALS: BP 109/56; PULSE 83; O2SAT 99
[2020-02-17 23:23] VITALS: BP 109/56; PULSE 89; RESP 12; TEMP 36.9; O2SAT 100; BMI 21.2
[2020-02-17] MEDS: diphenhydrAMINE 50 MG/ML VIAL 25 MG IV (23:44)
[2020-02-17] MEDS: SODIUM CHLORIDE 0.9% 1,000 ML 1000 ML IV (23:44)
[2020-02-17] MEDS: METOCLOPRAMIDE 10 MG/2 ML INJ IV (23:46)
[2020-02-17 23:54] LABS: RBC Urine None Seen (0-5/HPF)
[2020-02-18 00:11] LABS: Bacteria Urine Moderate (10-30); Culture Indicated Urine Cult Not Indicated; Mucus Urine 3+ (Negative); Squamous Epithelial Cell Urine 5-10 /HPF (0-5/HPF); WBC Urine 1-5/HPF (0-5/HPF)
[2020-02-18 00:38] VITALS: BP 104/63; PULSE 86; RESP 16; O2SAT 99
== END 2020-02-18 00:40 | disposition home or self-care (01) ==
PROVIDERS: Emergency Provider Emergency Medicine; Family Provider Physician Assistant Medical; PCP Physician Assistant Medical
DX: O26.891 Other specified pregnancy related conditions, first trimester (principal); R51 Headache; R11.2 Nausea with vomiting, unspecified; Z3A.01 Less than 8 weeks gestation of pregnancy
CPT/HCPCS: 36415; 81003; 81015; 81025; 96361; 96374; 96375; 99284; J1200; J2765

== ENCOUNTER → 2020-03-03 13:37 | Outpatient (CLI) | payer OTHER, MEDICAID, SELFPAY ==
[2020-03-03 14:13] LABS: Add Manual Diff / Slide Review NO; Basophils Absolute Auto 0 /uL (0-100); Basophils Percent Auto 0.4 % (0-2); Eosinophils Absolute Auto 0 /uL (0-450); Eosinophils Percent Auto 0.1 % (2-4); Hematocrit 39.1 % (36-46); Hemoglobin 13.6 g/dL (12.0-16.0); Lymphocytes Absolute Auto 1400 /uL (1100-4500); Lymphocytes Percent Auto 15.6 % (25-40); Mean Corpuscular HGB Conc 34.6 % (30-36); Mean Corpuscular Hemoglobin 32.9 PG (26-34); Mean Corpuscular Volume 94.9 fL (80-100); Monocytes Absolute Auto 400 /uL (0-900); Monocytes Percent Auto 4.3 % (3-14); Neutrophils Absolute Auto 7200 /uL (1500-7000); Neutrophils Percent Auto 79.6 % (50-75); Platelet Count 306 X10^3/uL (150-400); Red Blood Cell Count 4.13 X10^6/uL (4.0-5.2)
[2020-03-03 14:31] LABS: Appearance Urine UA CLEAR; Bilirubin Urine UA NEGATIVE (NEGATIVE); Color Urine UA YELLOW; Glucose Urine UA NEGATIVE (Negative); Ketones Urine UA 1+ (NEGATIVE); Leukocyte Esterase Urine UA NEGATIVE (NEGATIVE); Nitrite Urine UA NEGATIVE (Negative); Occult Blood Urine UA NEGATIVE (Negative); Protein Urine UA TRACE (Negative); Specific Gravity Urine UA 1.025 (1.000-1.035); Urobilinogen Urine UA 0.2 E.U./dL (0.2)
[2020-03-03 14:33] LABS: pH Urine UA 6.5 (4.5-8.0)
[2020-03-03 17:45] LABS: HIV 1 & 2 Ab/Ag 4th Gen Combo NEGATIVE (NEGATIVE); Hep C Virus Ab w/Reflex Quant NEGATIVE s/c (NEGATIVE); Hepatitis B Surface Antigen NEGATIVE s/c (NEGATIVE); Rubella Antibody IgG 21.3 IU/mL (>15)
[2020-03-04 06:10] LABS: RPR Screen Non Reactive (Non Reactive)
[2020-03-04 08:10] LABS: Varicella IgG Antibody 1194 index (Immune >165)
== END ==
PROVIDERS: Family Provider Physician Assistant Medical; PCP Physician Assistant Medical; Referring Provider Specialist; Visit Provider Specialist
DX: Z34.81 Encounter for supervision of other normal pregnancy, first trimester (principal)
CPT/HCPCS: 36415; 80055; 81003; 86787; 86803; 86850; 86900; 86901; 87086; 87389

== ENCOUNTER → 2020-03-31 14:56 | Outpatient (CLI) | payer OTHER, MEDICAID, SELFPAY ==
[2020-03-31 20:11] LABS: Urine N gonorrhoeae NOT DETECTED
[2020-03-31 20:32] LABS: Urine Chlamydia NOT DETECTED
== END ==
PROVIDERS: Family Provider Physician Assistant Medical; PCP Physician Assistant Medical; Visit Provider Specialist
DX: Z34.81 Encounter for supervision of other normal pregnancy, first trimester (principal); Z3A.12 12 weeks gestation of pregnancy
CPT/HCPCS: 87491; 87591

== ENCOUNTER → 2020-05-05 13:57 | Outpatient (CLI) | payer OTHER, MEDICAID, SELFPAY ==
[2020-05-08 00:52] LABS: AFP, Serum 40.5 ng/mL (.); Calc Gestational Age Ultrasound (.); Estriol, Free 0.52 ng/mL (.); Inhibin A, Dimeric 284.87 pg/mL (.); Inhibin A, MoM 1.72 (.); Maternal Ethnicity Caucasian (.); Maternal Weight 145 lbs (.); Number of Fetuses No (.); OSBR Risk 1 IN 10000 (.); Results Report (.); Test Results *Screen Positive* (.); hCG, MoM 2.09 (.); hCG, Serum 69733 mIU/mL (.)
== END ==
PROVIDERS: Specialist; Family Provider Physician Assistant Medical; PCP Physician Assistant Medical; Referring Provider Physician Assistant Medical; Visit Provider Physician Assistant Medical
DX: Z34.82 Encounter for supervision of other normal pregnancy, second trimester (principal); Z3A.17 17 weeks gestation of pregnancy
CPT/HCPCS: 36415; 82105; 82677; 84702; 86336

== ENCOUNTER → 2020-05-26 14:45 | Outpatient (CLI) | payer OTHER, MEDICAID, SELFPAY ==
--- NOTE | 2020-05-26 14:47 | DI.US.S_ITS ---
PROCEDURE: US OB >= 14 WEEKS FETUS INDICATIONS: 20 week anatomy scan OUTSIDE/PRIOR DATING DATA: Last menstrual period (LMP): 01/06/20 . LMP-based estimated date of delivery (OJDY): 10/12/20 . First dating scan (date and location): 03/03/20 . Estimated date of delivery (JODY) from first dating scan: 10/08/20 . TECHNIQUE: Real-time scanning was performed of the fetus, with image documentation and biometric measurements. Endovaginal scanning: Not performed COMPARISON: [facility], , OB <= 14 WEEKS FETUS, 03/03/2020, 12:25. [facility], , OB >= 14 WEEKS FETUS, 05/05/2020, 13:44. FINDINGS: General: A single living intrauterine gestation is present. Presentation: Vertex Placenta: Placental position is anterior , without previa. Amniotic fluid index: 15.6 cm, normal range is 5-24 cm. heart rate: 160 beats per minute. Maternal cervical canal: 3.8 cm long. Normal lower limit is 2.5 cm. biometrics: Biparietal diameter: 4.7 cm, 20 weeks 2 days Head circumference: 18.0 cm, 20 weeks 3 days Abdominal circumference: 15.1 cm, 20 weeks 2 days Femur length: 3.3 cm, 20 weeks 3 days Estimated gestational age from initial scan: 20 weeks 5 days Composite gestational age from present scan: 20 weeks 3 days Estimated weight and percentile: 350 g, 28th percentile Measurement variability for biometric dating: +/- 7 days from 14 weeks to 15 weeks 6 days gestation, +/- 10 days from 16 weeks to 21 weeks 6 days gestation, +/- 2 weeks from 22 weeks to 27 weeks 6 days gestation, +/- 3 weeks for 28 weeks gestation or later. weight reference: 4500 g or EFW >90/95% is considered macrosomia or large for gestational age. EFW <10% is small for gestational age. EFW 5% or less is considered intra-uterine growth restriction. Anatomic survey: Neuro: Ventricles are non-dilated at less than 10 mm. Cisterna magna is normal at 3-11 mm. Cerebellum is normal in size and morphology. Nuchal skin fold: Normal at less than 6 mm between 14-21 weeks gestational age. Face: Nose and lips, facial profile are normal. Spine: No evidence for spina bifida. Heart: 4-chambered heart is present, with normal ventricular outflow tracts. Diaphragm: Diaphragm is intact. Stomach: Left-sided stomach is present. Kidneys: No hydronephrosis. Normal is less than 5 mm in 2nd trimester, less than 7 mm in 3rd trimester. Cord: 3-vessel cord has orthotopic insertion. Bladder: Normal in size. Extremities: All 4 extremities identified. IMPRESSION: Single living intrauterine fetus in vertex presentation. Expected interval growth Normal anatomic survey Mild right hydronephrosis, probably related Dictated by: Nnamdi Pearson M.D. on 05/26/2020 at 16:41 Approved by: Nnamdi Pearson M.D. on 05/26/2020 at 16:46
== END ==
PROVIDERS: Family Provider Physician Assistant Medical; PCP Physician Assistant Medical; Referring Provider Specialist; Visit Provider Specialist
DX: Z34.82 Encounter for supervision of other normal pregnancy, second trimester (principal); Z3A.20 20 weeks gestation of pregnancy
CPT/HCPCS: 76811

== ENCOUNTER → 2020-06-30 14:19 | Outpatient (CLI) | payer OTHER, MEDICAID, SELFPAY ==
[2020-06-30 16:00] LABS: Hematocrit 31.6 % (36-46); Hemoglobin 11.1 g/dL (12.0-16.0)
[2020-06-30 16:29] LABS: GTT (PREG) 1 Hour PP 50gm Dose 118 mg/dL (76-139)
== END ==
PROVIDERS: Family Provider Physician Assistant Medical; PCP Physician Assistant Medical; Referring Provider Specialist; Visit Provider Specialist
DX: Z34.82 Encounter for supervision of other normal pregnancy, second trimester (principal); Z3A.25 25 weeks gestation of pregnancy
CPT/HCPCS: 36415; 82950; 85014; 85018

== ENCOUNTER → 2020-08-19 15:35 | Outpatient (CLI) | payer OTHER, MEDICAID, SELFPAY ==
[2020-08-19 16:33] LABS: COVID19 -Nasal RAPID Negative (Negative)
== END ==
PROVIDERS: Family Provider Physician Assistant Medical; PCP Physician Assistant Medical; Visit Provider Specialist
DX: Z20.822 Contact with and (suspected) exposure to COVID-19 (principal)
CPT/HCPCS: 87635

== ENCOUNTER 2020-08-24 21:28 | Outpatient (CLI) | payer OTHER, MEDICAID, SELFPAY ==
[2020-08-24 22:23] LABS: COVID19 -Nasal RAPID Negative (Negative)
--- NOTE | 2020-08-25 13:36 | PM.OBTRLD ---
Visit Information Visit Information Date of evaluation: 08/24/20 Primary OB Provider: Adelaide Esquivel On-call OB Provider: Rena Rodriguez Reason for Evaluation: Yes rupture of membranes Comments/Additional reasons for admission: Patient is a 30-year-old at 33 weeks gestation who called with possible rupture of membranes. She has had a upper respiratory infection including runny nose, sneezing, and coughing. She and her family were tested for COVID 3 days ago and were negative. She has had leakage of fluid without any urinary odor when she sneezes and coughs. She says that the leakage has continued even when she is not sneezing or coughing. [facility] Medical History (Updated 08/25/20 @ 13:39 by Rena Rodriguez MD) Abnormal Pap smear of cervix (~2010) Anxiety (~2005) Chickenpox (~1993) Depression (~2005) Epistaxis Gallstones Genital warts (~2010) Herpes dermatitis History of frequent headaches (~2008) Human papillomavirus (~2008) Irritable bowel Migraines (~2004) Plantar warts (~1994) Pyelonephritis Shoulder pain (~2007) Vaginal delivery Surgical History (Updated 02/26/20 @ 14:29 by Yisel Campos RN) H/O removal of cyst (~11/2019) History of cholecystectomy (~2012) [place] teeth extracted (~12/2010) Family History (Updated 03/04/20 @ 19:11 by Tonya Ashraf) Mother Scoliosis Hypertension Father Hypertension Hyperlipidemia Grandmother Emphysema lung Grandfather Myocardial infarct Grandfather Cancer Grandmother Family estrangement Social History marital status: number of children: 2 household members: spouse and children lives independently: Yes caregiver/support person: No housing: house pets and animals: No education level: college (associate's degree) occupational status: previously employed current occupational exposures/hazards: Yes special naila needs: No Smoking Status: Former smoker (Quit 04/2014.) Tobacco: How many years used: 8 second hand exposure: No alcohol intake: former (one glass a week.) substance use type: does not use and other (CBD gummies prior to for anxiety.) Objective Labs Labs: Laboratory Results - last 24 hr 08/24/20 21:35 SARS-CoV-2 (PCR) Negative Evaluation Evaluation Baseline heart rate: 120 Variability: Moderate (11-25) monitor accelerations: Present monitor decelerations: Absent Category of Tracing: Reactive Laboratory results: Laboratory Tests 08/24/20 21:35 SARS-CoV-2 (PCR) Negative Non-invasive Membranes Rupture Test: negative Diagnosis, Plan/Disposition Final Diagnosis (1) Rupture, membranes, premature: Status: Acute (2) Viral upper respiratory infection: Status: Acute Plan/Disposition Plan: Assessment: 30-year-old at 33 weeks gestation with a viral upper respiratory infection, COVID negative No rupture membranes Plan: Follow-up with Dr. Esquivel as scheduled OB Disposition: home
== END 2020-08-24 22:30 | disposition home or self-care (01) ==
LOC: LABOR 21:29 → OB 08-25 09:08
PROVIDERS: Family Provider Physician Assistant Medical; PCP Physician Assistant Medical; Referring Provider Specialist; Visit Provider Obstetrics & Gynecology
DX: O99.513 Diseases of the respiratory system complicating pregnancy, third trimester (principal); J06.9 Acute upper respiratory infection, unspecified; N89.8 Other specified noninflammatory disorders of vagina; Z3A.33 33 weeks gestation of pregnancy
CPT/HCPCS: 59025; 84112; 87635; C9803; G0378; G0379

== ENCOUNTER → 2020-09-03 14:30 | Outpatient (CLI) | payer OTHER, MEDICAID, SELFPAY ==
[2020-09-03] MEDS: COVID-19 VACC #1, MRNA(MOD) 100 MCG/0.5 ML VIAL IM (14:39)
== END ==
PROVIDERS: Family Provider Physician Assistant Medical; PCP Physician Assistant Medical; Visit Provider Internal Medicine
DX: Z23 Encounter for immunization (principal)
CPT/HCPCS: 0011A; 91301

== ENCOUNTER → 2020-09-17 11:33 | Outpatient (CLI) | payer OTHER, MEDICAID, SELFPAY ==
[2020-09-18 11:56] LABS: Strep Grp B PCR NEG for Grp B Strep
== END ==
PROVIDERS: Family Provider Physician Assistant Medical; PCP Physician Assistant Medical; Visit Provider Specialist
DX: Z34.83 Encounter for supervision of other normal pregnancy, third trimester (principal); Z3A.36 36 weeks gestation of pregnancy
CPT/HCPCS: 87653

== ENCOUNTER → 2020-10-01 14:16 | Outpatient (CLI) | payer OTHER, MEDICAID, SELFPAY ==
[2020-10-01] MEDS: COVID-19 VACC #2, MRNA(MOD) 100 MCG/0.5 ML VIAL IM (14:24)
== END ==
PROVIDERS: Family Provider Physician Assistant Medical; PCP Physician Assistant Medical; Visit Provider Internal Medicine
DX: Z23 Encounter for immunization (principal)
CPT/HCPCS: 0012A; 91301

== ENCOUNTER 2020-10-07 16:37 | Inpatient (IN) | payer OTHER, MEDICAID, SELFPAY ==
[2020-10-07 17:15] LABS: Add Manual Diff / Slide Review NO; Basophils Absolute Auto 0 /uL (0-100); Basophils Percent Auto 0.2 % (0-2); Eosinophils Absolute Auto 0 /uL (0-450); Eosinophils Percent Auto 0.2 % (2-4); Hematocrit 33.3 % (36-46); Hemoglobin 11.4 g/dL (12.0-16.0); Lymphocytes Absolute Auto 1200 /uL (1100-4500); Mean Corpuscular HGB Conc 34.2 % (30-36); Mean Corpuscular Hemoglobin 32.2 PG (26-34); Mean Corpuscular Volume 94.1 fL (80-100); Monocytes Absolute Auto 300 /uL (0-900); Monocytes Percent Auto 2.6 % (3-14); Neutrophils Absolute Auto 9600 /uL (1500-7000); Platelet Count 214 X10^3/uL (150-400); Red Blood Cell Count 3.54 X10^6/uL (4.0-5.2); Red Cell Distribution Width 12.7 % (11.6-14.8); White Blood Cell Count 11.1 X10^3/uL (4.5-11.0)
--- NOTE | 2020-10-07 17:18 | PM.OBHP.1 ---
OB HPI Date/Time Date of admission: 10/07/20 Date Patient Seen: 10/07/20 Time Patient Seen: 17:19 History of Present Condition Chief complaint: LABOR : 4 Para: 2 Estimated Date of Delivery: 10/12/20 Estimated Gestational Age (weeks): 39 Narrative: Luiza Scott is a 30 year old female admitted in active labor History of Present care: good care, initiated at week # (8), number of visits (11) and pounds weight gain (31) Dating criteria: LMP confirmed by 1st trimester US Ultrasounds: normal mid trimester US Obstetrical complications: none Medical complications: none Preadmission Labs Blood type: A (+) positive -: Antibody screen: negative, GBS status: negative, HBsAG: negative, HIV: negative and RPR/VDLR: negative -: Chlamydia screen: not detected and Gonorrhea screen: not detected -: Rubella: immune and Varicella: immune HCAB: negative Quad screen: Normal 1 hr GTT: 118 Prior (ies) History: 05/06/2015 39 week gestation female 6 lb 14 oz 02/26/2018 39 week gestation male 8 lb 8 oz Evaluation Evaluation Baseline heart rate: 140 Variability: Moderate (11-25) monitor accelerations: Present Monitor Decelerations: Absent Contraction Frequency (minutes): 4 Uterine Contraction Intensity: Strong/Firm Category of Tracing: Reactive Status: Category l Cervical dilation (cm): 7 Cervical effacement (%): 90 station: -2 [facility] Medical History (Updated 09/17/20 @ 11:48 by Adelaide Esquivel MD) Abnormal Pap smear of cervix (~2010) Anxiety (~2005) Chickenpox (~1993) Depression (~2005) Epistaxis Gallstones Genital warts (~2010) Herpes dermatitis History of frequent headaches (~2008) Human papillomavirus (~2008) Irritable bowel Migraines (~2004) Plantar warts (~1994) Pyelonephritis Rupture, membranes, premature Shoulder pain (~2007) Vaginal delivery Surgical History (Updated 02/26/20 @ 14:29 by Yisel Campos RN) H/O removal of cyst (~11/2019) History of cholecystectomy (~2012) [place] teeth extracted (~12/2010) Family History (Updated 03/04/20 @ 19:11 by Tonya Ashraf) Mother Scoliosis Hypertension Father Hypertension Hyperlipidemia Grandmother Emphysema lung Grandfather Myocardial infarct Grandfather Cancer Grandmother Family estrangement Social History marital status: number of children: 2 household members: spouse and children lives independently: Yes caregiver/support person: No housing: house pets and animals: No education level: college (associate's degree) occupational status: previously employed current occupational exposures/hazards: Yes special naila needs: No Smoking Status: Former smoker (Quit 04/2014.) Tobacco: How many years used: 8 second hand exposure: No alcohol intake: former (one glass a week.) substance use type: does not use and other (CBD gummies prior to for anxiety.) Meds Home Medications and Allergies Home Medications Medication Instructions Recorded Confirmed Type prenat.vits,walt,agw-mzgi-lwblv 1 tab PO DAILY 02/26/20 10/01/20 History omeprazole 40 mg-sodium 1 packet PO DAILY #30 ea 08/20/20 10/01/20 Rx bicarbonate 1,680 mg oral packet omeprazole 40 mg capsule,delayed 40 mg PO DAILY #30 cap 08/21/20 10/01/20 Rx release yxrcdgjnbq-myybawabgdpyo-xzqjeltt 1 tab PO Q4HP PRN #30 tab 08/26/20 10/01/20 Rx 50 mg-325 mg-40 mg tablet colestipol 1 gram tablet 2 g PO BID #1 tab 10/01/20 10/01/20 Rx Allergies Allergy/AdvReac Type Severity Reaction Status Date / Time No Known Drug Allergies Allergy Verified 10/07/20 17:03 Review of Systems Review of Systems Narrative: Patient denies headaches, scotomata, epigastric pain. No rupture membranes. Good movement. ROS: Yes All systems reviewed with the patient and are negative except as otherwise documented Exam Vital Signs (past 8 hours): Blood pressure 133/68, pulse 96, afebrile Narrative Exam Narrative: HEENT exam within normal limits. Lungs are clear to auscultation percussion. Heart is regular rate and rhythm no S3-S4 murmurs. Abdomen is gravid. Fetus is vertex. Extremities without edema and nontender. Objective Labs Result Diagrams: 10/07/20 17:08 Assessment and Plan Assessment and Plan Assessment and Plan narrative: 39 week gestation in active labor. Anticipate vaginal delivery.
[2020-10-07] MEDS: FENT 2MCG/ML BUPIV 0.125% EPI 200 MCG/100 ML PLAST..BAG 14 MCG EPIDURAL (17:43)
[2020-10-07] MEDS: LACTATED RINGERS 1,000 ML 100 ML IV (18:01)
[2020-10-07 18:03] VITALS: BP 108/59
[2020-10-07 18:15] LABS: COVID19 - ADMIT (NP swab/PCR) Negative (Negative)
--- NOTE | 2020-10-07 19:19 | PM.OBPRVD ---
Labor & Delivery Delivery date: 10/07/20 Delivery monitor: external FHT and external uterine Route of delivery: L&D Laceration Description: None Estimated blood loss (mL): 100 Anesthesia Type: Epidural Narrative: Patient arrived on Labor and delivery in active labor. She received an epidural catheter for pain control. She was AROM for particulate thick meconium. heart tones category 1 to category 2 throughout labor. The patient delivered spontaneously, over an intact perineum. The viable female infant was placed on the maternal abdomen. After the cord stopped pulsating the cord was clamped, cut, and cord bloods obtained. The placenta delivered spontaneously, intact, with 3 vessels. There were no cervical, vaginal, or perineal tears. Both infant mother doing well. [place] Baby 1: gender: Female Presentation: vertex Position: Right Occiput Anterior Placenta delivery description: Spontaneous Cord Vessel Description: 3 Vessels score (1 min): 9 score (5 min): 9 Plan for aftercare: Routine care
[2020-10-07] MEDS: IBUPROFEN 600 MG TABLET PO (20:57)
[2020-10-08] MEDS: IBUPROFEN 600 MG TABLET PO ×3 (03:06→15:39)
[2020-10-08 06:55] LABS: Add Manual Diff / Slide Review NO; Basophils Absolute Auto 100 /uL (0-100); Basophils Percent Auto 0.9 % (0-2); Eosinophils Absolute Auto 0 /uL (0-450); Eosinophils Percent Auto 0.5 % (2-4); Hematocrit 27.3 % (36-46); Hemoglobin 9.6 g/dL (12.0-16.0); Lymphocytes Absolute Auto 2100 /uL (1100-4500); Lymphocytes Percent Auto 21.3 % (25-40); Mean Corpuscular HGB Conc 35.2 % (30-36); Mean Corpuscular Hemoglobin 32.8 PG (26-34); Monocytes Absolute Auto 500 /uL (0-900); Monocytes Percent Auto 4.9 % (3-14); Neutrophils Absolute Auto 7100 /uL (1500-7000); Neutrophils Percent Auto 72.4 % (50-75); Platelet Count 197 X10^3/uL (150-400); Red Blood Cell Count 2.94 X10^6/uL (4.0-5.2); Red Cell Distribution Width 12.9 % (11.6-14.8); White Blood Cell Count 9.8 X10^3/uL (4.5-11.0)
[2020-10-08] MEDS: ACETAMINOPHEN 325 MG TABLET 650 MG PO ×2 (07:13→13:48)
--- NOTE | 2020-10-08 10:31 | PM.OBDS.1 ---
Discharge Providers Provider Date of admission: 10/07/20 16:37 Discharge Date: 10/08/20 Primary care physician: Leah Stokes PA-C Consults: 10/07/20 16:58 Consult to Anesthesiology Urgent Comment: Consulting Provider: Anesthesiologist Reason for consultation: Epidural Has provider been notified: No 10/08/20 19:17 Consult to Hand Glove Cleaner Routine Comment: Discharge provider: Adelaide Esquivel MD Summary Hospital Course Date Patient Seen: 10/08/20 Time Patient Seen: 10:32 Diagnoses: Spontaneous vaginal delivery Hospital Course: Patient arrived on Labor and delivery in active labor. She underwent an epidural catheter for pain control. She had a spontaneous vaginal delivery without tears. Patient denies headaches, scotomata, epigastric pain. She is urinating and ambulating well. She has minimal pain. She is breast-feeding without difficulty Peripartum Data Delivery Method: Natural Vaginal Laceration Description: None Procedures: Epidural catheter, spontaneous vaginal delivery complications: none 1: Gender: Female Disposition of : home Discharge Diagnosis (1) Vaginal delivery: Status: Acute Status at Discharge Cognitive/behavioral status at discharge: oriented Functional status at discharge: independent ambulation Overall status at discharge: patient is progressing back to baseline Time Spent with Patient Time attestation: Total time spent providing and/or coordinating discharge services: Time spent: Less than 30 minutes Objective Labs Result Diagrams: 10/08/20 06:35 Labs: Laboratory Results - last 24 hr 10/07/20 10/07/20 10/07/20 16:58 17:08 17:08 WBC 11.1 H RBC 3.54 L Hgb 11.4 L Hct 33.3 L MCV 94.1 MCH 32.2 MCHC 34.2 RDW 12.7 Plt Count 214 Neut % (Auto) 86.0 H Lymph % (Auto) 11.0 L Barry % (Auto) 2.6 L Eos % (Auto) 0.2 L Baso % (Auto) 0.2 Neut # (Auto) 9600 H Lymph # (Auto) 1200 Barry # (Auto) 300 Eos # (Auto) 0 Baso # (Auto) 0 SARS-CoV-2 (PCR) Negative Blood Type A Positive Antibody Screen Negative 10/08/20 06:35 WBC 9.8 RBC 2.94 L Hgb 9.6 L Hct 27.3 L MCV 93.0 MCH 32.8 MCHC 35.2 RDW 12.9 Plt Count 197 Neut % (Auto) 72.4 Lymph % (Auto) 21.3 L Barry % (Auto) 4.9 Eos % (Auto) 0.5 L Baso % (Auto) 0.9 Neut # (Auto) 7100 H Lymph # (Auto) 2100 Barry # (Auto) 500 Eos # (Auto) 0 Baso # (Auto) 100 SARS-CoV-2 (PCR) Blood Type Antibody Screen Exam Vital Signs (past 8 hours): Blood pressure 130/76, pulse of 79, temperature 98.5? Narrative Exam Narrative: Patient's abdomen is soft, nontender. Uterus is firm, at U, nontender. Mild lochia. Extremities without edema and nontender. Patient's blood type is O positive, she is rubella immune, she received Tdap in the 3rd trimester. Discharge Plan Discharge Plan Patient Disposition: Home Discharge orders & Medications Prescriptions: New ibuprofen 600 mg Tablet 600 mg PO Q6HR PRN (Reason: Pain, Mild (1-3)) Qty: 30 RF: 0 hydrocodone-acetaminophen 5-325 mg Tablet 2 tab PO Q4HR PRN (Reason: Pain, Severe (7-10)) Qty: 20 RF: 0 Continued omeprazole 40 mg capsule,delayed release(DR/EC) 40 mg PO DAILY Qty: 30 RF: 3 qnkmmjjpjf-gheedwzodwupd-wrze 50-325-40 mg tablet 1 tab PO Q4HP PRN (Reason: headaches) Qty: 30 RF: 0 prenat.vits,walt,tet-qsge-qkqki Tablet 1 tab PO DAILY RF: 0 colestipol 1 gram tablet 2 g PO BID Qty: 1 RF: 0 Follow up/Referrals: Adelaide Esquivel MD [Physician] - 1 Month (Please follow-up with Dr. Esquivel for a 4-week post check-up on November 05 @ 0930am ) Leah Stokes PA-C [Primary Care Provider] - Diet/Activity/Treatments Diet: Regular Activity: Nothing in vagina for 6 weeks. Skin/Wound/Dressing Care Report to your healthcare provider any signs of infection, such as:: chills, fever and increased pain Discharge Data Primary Care Provider: Leah Stokes
[2020-10-08 15:53] VITALS: BP 122/69; PULSE 86; RESP 16; TEMP 37.7
[2020-10-08 15:55] VITALS: BP 122/69; PULSE 86; RESP 16; TEMP 37.7
[2020-10-08 15:57] VITALS: BP 122/69; PULSE 86; RESP 16; TEMP 37.7
== END 2020-10-08 18:30 | disposition home or self-care (01) | DRG 807 ==
PROVIDERS: Admitting Provider Specialist; Family Provider Physician Assistant Medical; PCP Physician Assistant Medical; Referring Provider Specialist; Visit Provider Specialist
DX: O77.0 Labor and delivery complicated by meconium in amniotic fluid (principal); Z37.0 Single live birth; Z3A.39 39 weeks gestation of pregnancy; Z20.822 Contact with and (suspected) exposure to COVID-19; O99.344 Other mental disorders complicating childbirth; F41.8 Other specified anxiety disorders; O99.02 Anemia complicating childbirth; D64.9 Anemia, unspecified; O75.89 Other specified complications of labor and delivery; G43.909 Migraine, unspecified, not intractable, without status migrainosus
CPT/HCPCS: 01967; 36415; 59050; 59400; 85025; 86850; 86900; 86901; 87635; C9803; G0379